=== PATIENT | female | born 1940 | race Caucasian/White ===

== ENCOUNTER 2019-04-30 16:30 | Emergency (ER) | payer MEDICARE ==
[~2019-04-30] VITALS: Ht 147 cm; Wt 56.0 kg
[~2019-04-30 16:30] MED LIST: BIMA2.5D4; CYCL5TAB PO; HYDR1TAB8 PO
[2019-04-30] MEDS ORDERED: ASPIRIN 81 MG CHEW (CHILDREN'S ASA) PO ONE (17:15)
--- NOTE | 2019-04-30 18:09 | ED Neck-Back Pain/Injury ---
General Chief Complaint: Head/Cervical Problems Stated Complaint: NECK PAIN Nursing Triage Note: PT C/O LEFT SHOULDER PAIN X 3 DAYS. PT REPORTS SHE GETS PAIN IN SHOULDER WHEN WEATHER GETS COLD. TODAY, PT NOTICED RIGHT-SIDED NECK, JAW, AND EAR PAIN. PT REPORTS DECREASED ROM IN NECK. DENIES CHEST PAIN. DENIES N/V/D. Nursing Sepsis Screen: No Definite Risk Source of Information: Patient Exam Limitations: No Limitations History of Present Illness Date Seen by Provider: Apr 30, 2019 Time Seen by Provider: 17:43 Initial Comments Right sided high neck pain laterally. She says she feels like her neck is in spasm and hurts when she turns it. This started Thursday, 3 days ago and has progressively gotten better. She did go to her doctor's office Thursday yesterday however Dr. Mullen was not available and she did not want to see the mid-level provider. Today it has continued to hurt her so she came in. Early on she was having pain on the left side of her neck and shoulder as well however that has not came back. She has no history of coronary disease. She does not have high blood pressure, diabetes, hyperlipidemia nor does she smoke. She has no history of stroke but about a year ago when she was in [place] she had a episode of transient global amnesia which was worked up thoroughly at the time and she says she had ultrasounds of the arteries of her neck CTs of her head and these were all reviewed again by Dr. Mullen but no organic reason for her event was found. At this time the patient's having some mild tenderness to palpation over the area and pain that does not really radiate anymore. She has not taken anything for the pain but she did use heating pads and capsaicin oil with a moderate degree of affect. She's had no slurred speech, facial droop, weakness, numbness, tingling, difficulty walking. No history of stroke or TIAs that she is aware of. She does not take any medications. She does have a history of a couple years ago having a fall with some back pain in her low back and left wrist fracture. She says through the excellent care of chiropractors and physical therapy however she is generally pain free for the past 2 years. Allergies and Home Medications Allergies Coded Allergies: No Known Drug Allergies (Unverified , 02/04/15) Patient Home Medication List Home Medication List Reviewed: Yes Review of Systems Constitutional: No chills, No fever EENTM: ear pain (mild pain and pressure left ear); No ear discharge, No vision loss, No hoarseness Respiratory: No cough, No short of breath Cardiovascular: see HPI; No chest pain, No edema Gastrointestinal: No abdominal pain, No constipation, No diarrhea Genitourinary: No discharge, No dysuria Musculoskeletal: see HPI; No back pain; muscle pain, muscle stiffness, neck pain All Other Systems Reviewed Negative Unless Noted: Yes Past Llhvjng-Atcedu-Sgxeus Hx Patient Social History Alcohol Use: Denies Use Recreational Drug Use: No Smoking Status: Never a Smoker Recent Foreign Travel: No Contact w/Someone Who Travel: No Recent Infectious Disease Expo: No Past Medical History Tonsillectomy High Cholesterol [employer] History: Menopausal Fractures Glaucoma Physical Exam Vital Signs Vital Signs - First Documented 04/30/19 17:07 Temp 36.9 Pulse 74 B/P (MAP) 135/84 (101) Pulse Ox 96 O2 Delivery Room Air Capillary Refill : Less Than 3 Seconds Height, Weight, BMI Height: 4'11.00" Weight: 122lbs. 0.0oz. 55.946650nd; 25.00 BMI Method:Stated General Appearance: No Apparent Distress, WD/WN HEENT: PERRL/EOMI, Pharynx Normal, TM Abnormal (L), TM Abnormal (R) (bilateral otitis effusion without erythema, injection or loss of landmarks on the tympanic membrane) Neck: Normal Inspection, Supple, Limited Range of Motion (lacks about 15-20 of rotation to the right secondary to pain); No Lymphadenopathy (L), No Lymphadenopathy (R); Tender Lateral (insertion of the superior head of the sternocleidomastoid and the muscle belly are tender to palpation. Bilateral trapezius mildly tender to palpation.); No Tender Midline Cardiovascular: Regular Rate, Rhythm, Normal Peripheral Pulses Respiratory: Lungs Clear, Normal Breath Sounds, No Accessory Muscle Use, No Respiratory Distress Peripheral Pulses: 2+ Radial Pulses (R), 2+ Radial Pulses (L) Back: Normal Inspection, No Vertebral Tenderness Neurologic/Psychiatric: Alert, Oriented x3, No Motor/Sensory Deficits, Normal Mood/Affect, ticketing agent II-XII Norm as Tested, Other (NIH 0) Skin: Normal Color, Warm/Dry Progress/Results/Core Measures Results/Orders Vital Signs/I&O 11/9/19 17:07 Temp 36.9 Pulse 74 B/P (MAP) 135/84 (101) Pulse Ox 96 O2 Delivery Room Air Blood Pressure Mean: 101 POS Progress Progress Note : Time: 18:10 Progress Note Given the patient's age is reasonable to pursue a workup of the vessels of her neck. We also discussed the possibility of a referred pain-related angina that would best be worked up by labs since the EKG was normal. After using a shared decision making process the patient concluded that she would prefer to do the workup as indicated outpatient with Dr. Mullen. She is in agreement with the diagnosis of torticollis and otitis media effusion and would like to try steroids, topical creams heat. She declined the use of muscle relaxants secondary to side effect of drowsiness. Initial ECG Impression Date: Apr 30, 2019 Initial ECG Impression Time: 17:04 Initial ECG Rate: 77 Initial ECG Rhythm: Normal Sinus Initial ECG Intervals: Normal Initial ECG Impression: Normal Comment No ST elevation or depression. Departure Impression Primary Impression: Torticollis, acquired Additional Impression: Bilateral otitis media with effusion Disposition: 01 HOME, SELF-CARE Condition: Stable Departure-Patient Inst. Decision time for Depature: 18:15 Referrals: LYDIA MULLEN MD (PCP/Family) Primary Care Physician Patient Instructions: Torticollis, Adult, Serous Otitis Media (DC) Add. Discharge Instructions: For your neck pain you should try heating pads, topical creams such as capsaicin oil, icy hot etc. You may also use Tylenol 1000 mg every 8 hours as needed. Follow-up with her chiropractor may be beneficial as well as your symptoms persist for more than a week. Please follow-up with your primary care doctor to discuss other potential workup that may be indicated. For your mucoid effusion of the ear you should start using a topical nasal steroids such as Flonase/fluticasone or Rhinocort 1 puff each nostril twice a day for the next 1-2 weeks until symptoms improve. All discharge instructions reviewed with patient and/or family. Voiced understanding. Copy Copies To 1: LYDIA MULLEN MD, TITUS J Apr 30, 2019 18:09 POS
[2019-04-30 18:56] VITALS: BP 135/84
== END 2019-04-30 18:56 | disposition home or self-care (01) ==
LOC: EDUNIT# 16:30 → ER 16:32
DX: M43.6 Torticollis (principal); H65.93 Unspecified nonsuppurative otitis media, bilateral; E78.00 Pure hypercholesterolemia, unspecified; Z90.89 Acquired absence of other organs

== ENCOUNTER → 2019-08-10 | Outpatient (CLI) | payer MEDICARE ==
[2019-08-10 22:15] LABS: ALANINE AMINOTRANSFERASE 19 U/L (0-55); ALBUMIN 4.3 GM/DL (3.2-4.5); ALKALINE PHOSPHATASE 87 U/L (40-136); BILIRUBIN,TOTAL 0.4 MG/DL (0.1-1.0); BUN/CREATININE RATIO 19; CALCIUM 9.5 MG/DL (8.5-10.1); CARBON DIOXIDE 21 MMOL/L (21-32); CHLORIDE 102 MMOL/L (98-107); CREATININE SERUM 0.78 MG/DL (0.60-1.30); GFR ESTIMATED > 60; GLUCOSE 112 MG/DL (70-105); POTASSIUM 4.1 MMOL/L (3.6-5.0); SODIUM 135 MMOL/L (135-145); TOTAL PROTEIN 7.3 GM/DL (6.4-8.2)
== END ==
LOC: LABNPT 21:56
PROVIDERS: ATTEND Family Medicine
DX: R50.9 Fever, unspecified (principal)
CPT/HCPCS: 80053

== ENCOUNTER → 2021-10-15 | Outpatient (CLI) | payer MEDICARE ==
--- NOTE | 2021-10-15 14:56 | Diagnostic Imaging Report ---
INDICATION: Postmenopausal screening COMPARISON: Baseline FINDINGS: AP Spine L1-L4: [BMD (g/cm2): 1.073] [T-Score: -1.1] [Z-Score: 1.1] [BMD Previous: NA] [BMD % Change: NA] LT Hip Neck: [BMD (g/cm2): 0.781] [T-Score: -1.9] [Z-Score: 0.6] LT Hip Total: [BMD (g/cm2):0.884] [T-Score:-1.0] [Z-Score: 1.4] [BMD Previous: NA] [BMD % Change: NA] RT Hip Neck: [BMD (g/cm2):0.759] [T-Score:-2.0] [Z-Score:0.5] RT Hip Total: [BMD (g/cm2):0.848] [T-score:-1.3] [Z-Score:1.1] [BMD Previous:NA] [BMD % Change:NA] *Indicates significant change from prior examination based on 95% confidence level. World Health Organization criteria for BMD interpretation classify patients as Normal (T-score at or above -1.0), Osteopenic (T-score between -1.0 and -2.5) or Osteoporotic (T-score at or below -2.5). LIMITATIONS AND MODIFICATION: None. FRACTURE RISK (FRAX SCORE): The ten year probability of (%): Major Osteoporotic Fracture: [22.9] Hip Fracture: [6.7] IMPRESSION: 1. Osteopenia (Low bone mass). 2. Baseline examination. 3. See below National Osteoporosis Foundation guidelines on when to potentially initiate pharmacologic therapy. Based on the National Osteoporosis Foundation Guidelines, pharmacologic treatment should be initiated in any of the following, unless clinical conditions suggest otherwise: * Any patient with prior fragility fracture of the hip or vertebrae. A spine fracture indicates 5X risk for subsequent spine fracture and 2X risk for subsequent hip fracture. * Osteoporosis (T-score <-2.5). * Postmenopausal women and men age 50 and older with low bone mass/osteopenia (T-score between -1.0 and -2.5) by DXA and 10-year major osteoporotic fracture greater than 20% or a 10-year probability of hip fracture greater than 3%. These fracture risks are supplied above in the FRAX score, if applicable. * Clinician judgement and/or patient preferences may indicate treatment for people with 10-year fracture probabilities above or below these levels. Dictated by: Dictated on workstation # [id number]
== END ==
LOC: RAD 11:00
PROVIDERS: ATTEND Internal Medicine
DX: Z13.820 Encounter for screening for osteoporosis (principal); M85.88 Other specified disorders of bone density and structure, other site; Z78.0 Asymptomatic menopausal state
CPT/HCPCS: 77080

== ENCOUNTER 2022-06-25 08:01 | Observation (INO) | payer MEDICARE ==
[~2022-06-25] VITALS: Ht 149.9 cm; Wt 55.0 kg
[2022-06-25] MEDS ORDERED: ANTACID SUSP 30 ML UDC (MYLANTA) PO PRN (09:45)
[2022-06-25] MEDS ORDERED: CALCIUM CARBONATE 500 MG (TUMS) TAB.CHEW PO PRN (09:45)
[2022-06-25] MEDS ORDERED: NS IV 500 ML 500 ML IV PRN (09:45)
[2022-06-25] MEDS ORDERED: ONDANSETRON 4 MG/2 ML (SDV) Z0FRAN IV PRN (09:45)
[2022-06-25] MEDS ORDERED: LACTULOSE SYRUP 10GM/15ML (ENULOSE) 30ML UDC PO PRN (09:45)
[2022-06-25] MEDS ORDERED: MELATONIN 3 MG TABLET PO PRN (09:45)
[2022-06-25] MEDS ORDERED: MILK OF MAGNESIA 400 MG/5 ML 30 ML UDC PO PRN (09:45)
[2022-06-25] MEDS ORDERED: ONDANSETRON 4 MG (ZOFRAN) ORAL DISSOLVE TAB PO PRN (09:45)
[2022-06-25] MEDS ORDERED: ACETAMINOPHEN 325 MG TABLET PO PRN (09:45)
[2022-06-25] MEDS ORDERED: BISACODYL 10 MG SUPP (DULCOLAX) PR PRN (09:45)
[2022-06-25] MEDS ORDERED: polyethylene glycoL POWDER 17 GM (MIRALAX) PACK PO PRN (09:45)
[2022-06-25 10:01] VITALS: BP 152/65
--- NOTE | 2022-06-25 10:26 | Speech Therapy Progress Note ---
Therapy Progress Note Speech language pathology received consultations for a cognitive evaluation and a clinical bedside swallowing assessment. Per chart review, the patient has "passed" her RN Dysphagia Screening. If additional swallowing concerns are not present, the RN is able to advance the patient's diet consistency as tolerated. Due to scheduling conflicts, the clinician will be unable to attempt the evaluation on this date. The assessments will be completed on the subsequent tr eatment date of 06/26/21, within 24 hours of the consultation. MORGAN REESE Jun 25, 2022 10:26
--- NOTE | 2022-06-25 11:15 | Diagnostic Imaging Report ---
PROCEDURE: US carotid duplex, bilateral. TECHNIQUE: Multiple real-time grayscale images were obtained over the carotid arteries in various projections, bilaterally. Additional spectral analysis and color Doppler duplex images were also obtained. INDICATION: Transient ischemic attack. There is mild calcified plaque noted in both carotid bulbs and proximal ICAs. The velocities are normal bilaterally. No velocity elevation or stenosis is identified. Both vertebral arteries demonstrate antegrade flow. IMPRESSION: Mild bilateral carotid plaque. There is no evidence of a hemodynamically significant stenosis. Parameters based on the consensus panel Maguire-Scale and Doppler ultrasound criteria published April 2003, Radiology, Volume 229. DOPPLER (peak systolic velocity M/S Right Left CCA .60 .57 ICA Proximal .55 .42 ICA Mid .57 .77 ICA Distal .60 .79 RATIO 1.0 1.4 ECA .90 .57 VERT .31 .31 Dictated by: Dictated on workstation # [id number]
--- NOTE | 2022-06-25 11:18 | Diagnostic Imaging Report ---
PROCEDURE: MR imaging of the brain without contrast. TECHNIQUE: Multiplanar, multisequence MR imaging of the brain was performed without contrast. INDICATION: Right-sided numbness and tingling. No prior studies are available for comparison. There is a moderate-sized area of encephalomalacia in the left cerebellar hemisphere consistent with prior infarct. There is a tiny focus of diffusion restriction in the lateral aspect of the left cerebellar hemisphere, suggestive of an acute/subacute infarct. No other areas of diffusion restriction are identified. There are periventricular and subcortical white matter foci consistent with chronic microvascular ischemia. There is no midline shift. The normal expected flow-voids within the carotid siphons are seen. No acute intra-axial or extra-axial hemorrhage is detected. Corpus callosum is unremarkable. The sella and parasellar structures are unremarkable. IMPRESSION: 1. Acute/subacute microinfarct left cerebellar hemisphere. No other areas of acute abnormality identified. 2. Changes of chronic microvascular ischemia. Dictated by: Dictated on workstation # [id number]
[2022-06-25 11:25] VITALS: BP 148/63
--- NOTE | 2022-06-25 11:45 | Physical Therapy Progress Note ---
Therapy Progress Note Order for PT evaluation received. Nurse reports that patient is ambulating on her own, toileting and dressing herself without issue, completely independent with mobility. Will discharge for now. AMY PYLE PT Jun 25, 2022 11:45
--- NOTE | 2022-06-25 11:54 | Occ Therapy Progress Note ---
Therapy Progress Note OT orders received and chart reviewed. RN reports pt is ambulating independently, toileting and dressing herself without assistance, and is independent at this time. OT will discharge pt from OT services at this time, please send new OT orders if pt has a decline requiring skilled OT intervention. DIRK VILLAR OT Jun 25, 2022 11:54
[2022-06-25] MEDS ORDERED: AMLO-251 PO ×2 (13:27→15:26)
[2022-06-25] MEDS ORDERED: ATOR80TA76 PO ×2 (13:27→15:26)
[2022-06-25] MEDS ORDERED: ASPI-1238 PO ×2 (13:27→15:26)
[2022-06-25] MEDS ORDERED: amLODIPine 10 MG (NORVASC) TAB PO NR (13:45)
[2022-06-25] MEDS ORDERED: ENOXAPARIN 40 MG/0.4 ML (LOVENOX) SYR SC SCH (15:00)
--- NOTE | 2022-06-25 18:45 | Short Stay Summary-Hospitalist ---
History of Present Illness HPI/Chief Complaint Sandra Bashir is an 81 year old female who presented to [facility] with stroke like symptoms. She was having right arm numbness this morning. She also had right facial numbness and weakness. She denies any arm or leg weakness. She denies dizziness or balance issues. She denies vision changes. Upon my exam, all her symptoms have resolved and she is feeling normal again. She is a bit fatigued. She reports a history of TIA. She does not take any medications. She reports an aversion to medications because her previous reportedly due to his medications. Source: patient Exam Limitations: no limitations Date Seen 06/25/22 Time Seen by a Provider: 12:30 Attending Physician Mikie Alejandro MD PCP Admitting Physician: Hoa Peck MD Attending Physician: Hoa Peck MD Referring Physician Date of Admission Jun 25, 2022 at 09:14 Home Medications & Allergies Home Medications Reviewed patient Home Medication Reconciliation performed by pharmacy medication reconciliations industrial controls technician and/or nursing. Patients Allergies have been reviewed. 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 0.0oz. 55.305956rz; 24.47 BMI Method:Stated General Appearance: No Apparent Distress, WD/WN HEENT: PERRL/EOMI, Pharynx Normal Neck: Normal Inspection, Supple Respiratory: Lungs Clear, No Respiratory Distress Cardiovascular: Regular Rate, Rhythm, No Murmur Gastrointestinal: Normal Bowel Sounds, Soft Extremity: Normal Inspection, No Pedal Edema Neurologic/Psychiatric: Alert, No Motor/Sensory Deficits, Normal Mood/Affect; No Aphasia, No Facial Droop Skin: Normal Color, Warm/Dry Results Results/Procedures Labs Patient resulted labs reviewed. Imaging: Reviewed Imaging Report Short Stay Diagnosis Discharge Diagnosis-Short Stay Admission Diagnosis Stroke like symptoms Final Discharge Diagnosis Left cerebellar stroke Conclusion Plan Left cerebellar stroke Hypertension At risk for medication noncompliance MRI with acute/subacute left cerebellar stroke Carotid ultrasound with mild bilateral plaque Echo with normal EF, grade I diastolic dysfunction EKG showed sinus rhythm with PACs BP elevated Started on Amlodipine for HTN Begin Aspirin for stroke prophylaxis Refused labs, unsure of lipid levels Started on Lipitor for lipid optimization Discussed medications and side effects with patient and , she agrees to take them for now Follow up with Dr. Alejandro in about a week Diagnosis/Problems Diagnosis/Problems (1) Cerebellar stroke Status: Acute (2) HTN (hypertension) Status: Acute Qualifiers: Qualified Codes: I10 - Essential (primary) hypertension (3) At risk for medication noncompliance Status: Acute Copy Copies To 1: MIKIE ALEJANDRO MD, JARIN M MD Jun 25, 2022 18:45
[2022-06-25] MEDS ORDERED: SENNOSIDES 8.6 MG (SENOKOT) TAB PO SCH (21:00)
[2022-06-25] MEDS ORDERED: DOCUSATE SODIUM 100 MG (COLACE) CAP PO SCH (21:00)
[2022-06-26] MEDS ORDERED: KCL 20 MEQ TAB (K-DUR) PO SCH (06:00)
[2022-06-26] MEDS ORDERED: MAGNESIUM 1 GM/100 ML IVPB 100 ML IV SCH (06:00)
[2022-06-26] MEDS ORDERED: POTASSIUM CL 10MEQ/50ML IVPB 50 ML IV SCH (06:00)
[2022-06-26] MEDS ORDERED: ASPIRIN E.C. 81 MG (ECOTRIN) TAB PO SCH (09:00)
== END 2022-06-25 14:14 | disposition home or self-care (01) ==
LOC: 4TH 09:14
PROVIDERS: ADMIT Internal Medicine; ATTEND Internal Medicine
DX: I63.9 Cerebral infarction, unspecified (principal); I10 Essential (primary) hypertension; I35.2 Nonrheumatic aortic (valve) stenosis with insufficiency
CPT/HCPCS: 70551; 93005; 93880; C8929; G0378; G0379; 93306

== ENCOUNTER 2022-07-22 16:28 | Observation (INO) | payer MEDICARE ==
[~2022-07-22] VITALS: Ht 150 cm; Wt 55.0 kg
[~2022-07-22 16:28] MED LIST changes: +AMLO-251 PO; +ASPI-1238 PO; +ATOR80TA76 PO
--- NOTE | 2022-07-22 17:05 | ED Cough/URI ---
General Chief Complaint: Cough/Cold/Flu Symptoms Stated Complaint: COUGH Nursing Triage Note: PT STATES COUGH FOR ABOUT A WEEK Source: patient Exam Limitations: no limitations History of Present Illness Date Seen by Provider: Jul 22, 2022 Time Seen by Provider: 16:39 Initial Comments 81-year-old female presents with cold symptoms since last Thursday. Reports her main complaint is her cough, states she is unable to sleep at night due to the coughing. States the symptoms started with a runny nose and tearing of her eyes as well as a sore throat. She states her sore throat is better after doing salt water gargles and using an analgesic spray for her throat. She also reports she was unable to eat due to weakness, states she was walking to the bathroom and felt like she was going to faint. She also reported a "warm pressure" in her chest. She states she is concerned for bronchitis or pneumonia. Denies fever/chills, headache, shortness of air, abdominal pain, nausea/vomiting, diarrhea. Past medical history includes TIA, she takes atorvastatin, losartan, and aspirin. States she also started taking zinc and using the throat spray since she started to feel unwell. Allergies and Home Medications Allergies Coded Allergies: No Known Drug Allergies (Unverified , 02/04/15) Patient Home Medication List Home Medication List Reviewed: Yes Ascorbic Acid/Zinc Oxide (Zinc-Vitamin C 50-90 mg Sfgl) 90 Mg-50 Mg Capsule, 1 EACH PO DAILY PRN for COLD SYMPTOMS, (Reported) Entered as Reported by: NIKOLAY WISE on 07/23/221052 Last Action: Reviewed Aspirin (Aspirin EC) 81 Mg Tablet.dr, 81 MG PO DAILY, (Reported) Entered as Reported by: NIKOLAY WISE on 07/23/221052 Last Action: Reviewed Atorvastatin Calcium (Atorvastatin Calcium) 80 Mg Tablet, 80 MG PO 1800, (Reported) Entered as Reported by: NIKOLAY WISE on 07/23/221052 Last Action: Reviewed Benzonatate (Tessalon Perles) 100 Mg Capsule, 200 MG PO Q6H Prescribed by: JOSE M BELLE on 07/24/22 110 Losartan Potassium (Losartan Potassium) 50 Mg Tablet, 50 MG PO 1800, (Reported) Entered as Reported by: NIKOLAY WISE on 07/23/221052 Last Action: Reviewed [Throat &Gland Suprt] , 2 SPRAY PO BID PRN for COLD SYMPTOMS, (Reported) Entered as Reported by: NIKOLAY WISE on 07/23/22 1053 Last Action: Reviewed Discontinued Medications Amlodipine Besylate (Amlodipine Besylate) 10 Mg Tablet, 10 MG PO ONCE Discontinued Reason: No Longer Taking Prescribed by: SALLIE GUTIÉRREZ on 06/25/221525 Last Action: Discontinued Aspirin (Aspirin EC) 81 Mg Tablet.dr, 81 MG PO DAILY Discontinued Reason: No Longer Taking Prescribed by: SALLIE GUTIÉRREZ on 06/25/221525 Last Action: Discontinued Atorvastatin Calcium (Atorvastatin Calcium) 80 Mg Tablet, 80 MG PO DAILY Discontinued Reason: No Longer Taking Prescribed by: SALLIE GUTIÉRREZ on 06/25/221525 Last Action: Discontinued Losartan Potassium (Cozaar) 50 Mg Tablet, 50 MG PO DAILY, (Reported) Discontinued Reason: No Longer Taking Entered as Reported by: JASPREET SHRESTHA on 07/22/222014 Last Action: Discontinued [Lumigan2.5 M2] 2.5 ML DROPS, ML, (Reported) Discontinued Reason: No Longer Taking Entered as Reported by: TONE GAO on 02/04/15 0738 Last Action: Discontinued Review of Systems Review of Systems Constitutional: see HPI Past Mbswxfs-Kvnhsz-Ujggsg Hx Patient Social History Tobacco Use?: No Substance use?: No Alcohol Use?: Yes Alcohol type: Wine Alcohol Frequency: Once in a while Immunizations Up To Date Tetanus Booster (TDap): Unknown Past Medical History Surgery/Hospitalization HX: VERTIGO, TONSILS, LT KNEE SCOPE Surgeries: Yes Tonsillectomy Respiratory: No Cardiac: No High Cholesterol Neurological: Yes (TRANSIENT GLOBAL AMNESIA, 12/22/2013) DATA ENTRY ASSISTANT History: Menopausal Gastrointestinal: No Musculoskeletal: Yes (LEFT WRIST FRACTURE 06/2014--NO SURGERY) Fractures Endocrine: No Glaucoma Cancer: No Psychosocial: No Integumentary: No Blood Disorders: No Family Medical History No Pertinent Family Hx Physical Exam Vital Signs - First Documented 07/22/22 16:58 Temp 36.9 Pulse 82 Resp 20 B/P (MAP) 125/62 (83) Pulse Ox 96 O2 Delivery Room Air Capillary Refill : Less Than 3 Seconds Height: 4'11.00" Weight: 122lbs. 0.0oz. [id number]; 24.00 BMI Method:Stated General Appearance: WD/WN, no apparent distress Neck: supple, normal inspection Respiratory: lungs clear, no respiratory distress, no accessory muscle use, decreased breath sounds Cardiovascular: regular rate, rhythm, no edema, no gallop, no JVD, no murmur Extremities: normal range of motion, normal inspection Neurologic/Psychiatric: alert, normal mood/affect, oriented x 3 Skin: normal color, warm/dry Progress/Results/Core Measures Suspected Sepsis SIRS Temperature: Pulse: 82 Respiratory Rate: 20 Laboratory Tests 07/22/22 17:30: White Blood Count 6.1 Blood Pressure 125 /62 Mean: 83 Laboratory Tests 07/22/22 17:30: Creatinine 0.72, Platelet Count 242, Total Bilirubin 0.4 Results/Orders Lab Results Laboratory Tests Test 07/22/22 16:49 07/22/22 17:30 Range/Units Influenza Type A (RT-PCR) Not Detected Not Detecte Influenza Type B (RT-PCR) Not Detected Not Detecte SARS-CoV-2 RNA (RT-PCR) Not Detected Not Detecte White Blood Count 6.1 4.3-11.0 10^3/uL Red Blood Count 4.21 3.80-5.11 10^6/uL Hemoglobin 12.7 11.5-16.0 g/dL Hematocrit 39 35-52 % Mean Corpuscular Volume 92 80-99 fL Mean Corpuscular Hemoglobin 30 25-34 pg Mean Corpuscular Hemoglobin Concent 33 32-36 g/dL Red Cell Distribution Width 13.2 10.0-14.5 % Platelet Count 242 130-400 10^3/uL Mean Platelet Volume 10.0 9.0-12.2 fL Immature Granulocyte % (Auto) 0 % Neutrophils (%) (Auto) 73 42-75 % Lymphocytes (%) (Auto) 17 12-44 % Monocytes (%) (Auto) 6 0-12 % Eosinophils (%) (Auto) 4 0-10 % Basophils (%) (Auto) 1 0-10 % Neutrophils # (Auto) 4.4 1.8-7.8 10^3/uL Lymphocytes # (Auto) 1.0 1.0-4.0 10^3/uL Monocytes # (Auto) 0.4 0.0-1.0 10^3/uL Eosinophils # (Auto) 0.2 0.0-0.3 10^3/uL Basophils # (Auto) 0.0 0.0-0.1 10^3/uL Immature Granulocyte # (Auto) 0.0 0.0-0.1 10^3/uL Sodium Level 138 135-145 MMOL/L Potassium Level 3.8 3.6-5.0 MMOL/L Chloride Level 102 98-107 MMOL/L Carbon Dioxide Level 24 21-32 MMOL/L Anion Gap 12 5-14 MMOL/L Blood Urea Nitrogen 19 H 7-18 MG/DL Creatinine 0.72 0.60-1.30 MG/DL Estimat Glomerular Filtration Rate 83 BUN/Creatinine Ratio 26 Glucose Level 113 H 70-105 MG/DL Calcium Level 9.7 8.5-10.1 MG/DL Corrected Calcium 9.6 8.5-10.1 MG/DL Magnesium Level 2.2 1.6-2.4 MG/DL Total Bilirubin 0.4 0.1-1.0 MG/DL Aspartate Amino Transf (AST/SGOT) 19 5-34 U/L Alanine Aminotransferase (ALT/SGPT) 20 0-55 U/L Alkaline Phosphatase 113 40-136 U/L Troponin I 0.089 H <0.028 NG/ML Total Protein 7.7 6.4-8.2 GM/DL Albumin 4.1 3.2-4.5 GM/DL My Orders Orders - CHUCHO ARIAS APRN Covid 19 Inhouse Test (07/22/22 16:39) Influenza A And B By Pcr (07/22/22 16:39) Chest 1 View, Ap/Pa Only (07/22/22 17:00) Cbc With Automated Diff (07/22/22 17:05) Magnesium (07/22/22 17:05) Ekg Tracing (07/22/22 17:05) Comprehensive Metabolic Panel (07/22/22 17:05) Monitor-Rhythm Ecg Trace Only (07/22/22 17:05) Ed Iv/Invasive Line Start (07/22/22 17:05) Troponin I [place] (07/22/22 17:05) Ns Iv 1000 Ml (Sodium Chloride 0.9%) (07/22/22 17:15) Benzonatate Capsule (Tessalon Perles) (07/22/22 17:15) Ed Admission (Communication) (07/22/22 19:11) Medications Given in ED Vital Signs/I&O 07/22/22 07/22/22 16:58 17:00 Temp 36.9 Pulse 82 Resp 20 B/P (MAP) 125/62 (83) Pulse Ox 96 O2 Delivery Room Air Room Air Capillary Refill : Less Than 3 Seconds Blood Pressure Mean: 83 Progress Note #1: Time: 17:15 Progress Note Patient seen and evaluated, resting in bed, no acute distress. Based on exam and symptoms differential diagnosis includes but is not limited to, upper respiratory virus, pneumonia, bronchitis. Work-up initiated including CBC, CMP, troponin, chest x-ray, flu/COVID swabs, EKG. IV fluids ordered. Progress Note #2: Time: 17:30 Progress Note Chest x-ray reviewed, no concern for pneumonia, no cardiopulmonary process identified. Progress Note #3: Time: 18:50 Progress Note Labs reviewed. CBC grossly normal. CMP shows slightly elevated BUN at 19, and slightly elevated glucose at 113. Troponin elevated at 0.089, will consult with Dr. Das, cardiology, and Dr. Belle, hospitalist, for admission. Covid/flu negative. ECG Initial ECG Impression Date: Jul 22, 2022 Initial ECG Impression Time: 17:33 Initial ECG Rate: 76 Initial ECG Rhythm: Normal Sinus Initial ECG Intervals: Normal Initial ECG Impression: Normal Initial ECG Comparisson: Unchanged Diagnostic Imaging Diagonstic Imaging: Xray Plain Films/CT/US/NM/MRI: chest Comments [facility] [place], [place] NAME: SONNY SAINI [facility] REC#: [id number] PT STATUS: REG ER : 1940 PHYSICIAN: CHUCHO ARIAS APRN ADMIT DATE: 07/22/22/ER Draft Date of Exam:07/22/22 CHEST 1 VIEW, AP/PA ONLY INDICATION: Cough. FINDINGS: The heart size, mediastinal configuration, and pulmonary vascularity are within normal limits. There is no pleural effusion, pneumothorax, or pneumonia. The osseous structures are unremarkable. IMPRESSION: No acute cardiopulmonary abnormality. Dictated on workstation # [id number] Dict: 07/22/22 1719 Trans: 07/22/22 1721 [id number] Interpreted by: MASSIEL RAE MD Electronically signed by: Departure Communication (Admissions) Time/Spoke to Admitting Phy: 19:[address] Belle, hospitalist, regarding admission, she will place admission orders. Time/Spoke to Consulting Phy: 18:[address] Das, cardiology. He recommends admission with serial troponins, starting 1 mg/kg Lovenox, and continuing home medications. Impression Primary Impression: Elevated troponin Disposition: ADMITTED INPATIENT Condition: Stable Admissions Decision to Admit Reason: Admit from ER (General) Decision to Admit/Date: Jul 22, 2022 Time/Decision to Admit Time: 18:50 Departure-Patient Inst. Referrals: MIKIE ALEJANDRO MD (PCP/Family) Primary Care Physician Scripts Benzonatate (TESSALON PERLES) 100 Mg Capsule 200 MG PO Q6H, #30 CAP Prov: JOSE M BELLE DO 07/24/22 CHUCHO ARIAS APRN Jul 22, 2022 17:05
[2022-07-22] MEDS ORDERED: NS IV 1000 ML 1,000 ML IV SCH (17:15)
[2022-07-22] MEDS ORDERED: BENZONATATE 100 MG (TESSALON) CAPSULE PO ONE (17:15)
--- NOTE | 2022-07-22 17:22 | Diagnostic Imaging Report ---
INDICATION: Cough. FINDINGS: The heart size, mediastinal configuration, and pulmonary vascularity are within normal limits. There is no pleural effusion, pneumothorax, or pneumonia. The osseous structures are unremarkable. IMPRESSION: No acute cardiopulmonary abnormality. Dictated by: Dictated on workstation # [id number]
[2022-07-22 17:45] LABS: BASOPHILS % (AUTO) 1 % (0-10); EOSINOPHILS # (AUTO) 0.2 10^3/uL (0.0-0.3); EOSINOPHILS % (AUTO) 4 % (0-10); HEMATOCRIT 39 % (35-52); HEMOGLOBIN 12.7 g/dL (11.5-16.0); LYMPHOCYTES % (AUTO) 17 % (12-44); MEAN CORPUSCULAR HEMOGLOBIN 30 pg (25-34); MEAN CORPUSCULAR HGB CONC 33 g/dL (32-36); MEAN CORPUSCULAR VOLUME 92 fL (80-99); MONOCYTES # (AUTO) 0.4 10^3/uL (0.0-1.0); MONOCYTES % (AUTO) 6 % (0-12); NEUTROPHILS # (AUTO) 4.4 10^3/uL (1.8-7.8); NEUTROPHILS % (AUTO) 73 % (42-75); PLATELET COUNT 242 10^3/uL (130-400); WHITE BLOOD COUNT 6.1 10^3/uL (4.3-11.0)
[2022-07-22 18:07] LABS: ALBUMIN 4.1 GM/DL (3.2-4.5); BILIRUBIN,TOTAL 0.4 MG/DL (0.1-1.0); CALCIUM 9.7 MG/DL (8.5-10.1); CREATININE SERUM 0.72 MG/DL (0.60-1.30); MAGNESIUM 2.2 MG/DL (1.6-2.4); POTASSIUM 3.8 MMOL/L (3.6-5.0); TOTAL PROTEIN 7.7 GM/DL (6.4-8.2)
[2022-07-22 19:59] VITALS: BP 154/81
[2022-07-22] MEDS ORDERED: morphine INJ 4 MG/ML 1 ML (VIAL/SYRINGE) IV PRN (20:00)
[2022-07-22] MEDS ORDERED: MILK OF MAGNESIA 400 MG/5 ML 30 ML UDC PO PRN (20:00)
[2022-07-22] MEDS ORDERED: diphenhydrAMINE 50 MG/ML INJ (BENADRYL) IVP PRN (20:00)
[2022-07-22] MEDS ORDERED: ANTACID SUSP 30 ML UDC (MYLANTA) PO PRN (20:00)
[2022-07-22] MEDS ORDERED: ONDANSETRON 4 MG/2 ML (SDV) Z0FRAN IV PRN (20:00)
[2022-07-22] MEDS ORDERED: ONDANSETRON 4 MG (ZOFRAN) ORAL DISSOLVE TAB PO PRN (20:00)
[2022-07-22] MEDS ORDERED: CALCIUM CARBONATE 500 MG (TUMS) TAB.CHEW PO PRN (20:00)
[2022-07-22] MEDS ORDERED: PATIENT MAY USE OWN MEDS, ALL PO SCH (20:00)
[2022-07-22] MEDS ORDERED: LACTULOSE SYRUP 10GM/15ML (ENULOSE) 30ML UDC PO PRN (20:00)
[2022-07-22] MEDS ORDERED: NITROGLYCERIN 0.4 MG SL TABS BTL 25'S SL PRN (20:00)
[2022-07-22] MEDS ORDERED: ACETAMINOPHEN 325 MG TABLET PO PRN (20:00)
[2022-07-22] MEDS ORDERED: ALPRAZolam 1 MG (XANAX) TAB PO PRN (20:00)
[2022-07-22] MEDS ORDERED: BISACODYL 10 MG SUPP (DULCOLAX) PR PRN (20:00)
[2022-07-22] MEDS ORDERED: diphenhydrAMINE 25 MG TAB (BENADRYL) PO PRN (20:00)
[2022-07-22] MEDS ORDERED: MELATONIN 3 MG TABLET PO PRN (20:00)
[2022-07-22] MEDS ORDERED: polyethylene glycoL POWDER 17 GM (MIRALAX) PACK PO PRN (20:00)
[2022-07-22] MEDS ORDERED: LOSA50TA2 PO (20:15)
[2022-07-22 20:23] VITALS: BP 125/62
[2022-07-22] MEDS ORDERED: RT-ALBUTEROL SULF 2.5 MG/3 ML PRE-MIX VIAL INH PRN (20:30)
[2022-07-22] MEDS: SENNOSIDES 8.6 MG (SENOKOT) TAB PO SCH (23:11)
[2022-07-22] MEDS: DOCUSATE SODIUM 100 MG (COLACE) CAP PO SCH (23:11)
[2022-07-22 23:49] VITALS: BP 105/62
[2022-07-23] VITALS (7 sets, daily range): BP systolic 104–120; BP diastolic 54–69
[2022-07-23 05:48] LABS: BASOPHILS % (AUTO) 0 % (0-10); EOSINOPHILS # (AUTO) 0.2 10^3/uL (0.0-0.3); EOSINOPHILS % (AUTO) 4 % (0-10); HEMATOCRIT 36 % (35-52); HEMOGLOBIN 11.9 g/dL (11.5-16.0); LYMPHOCYTES # (AUTO) 0.9 10^3/uL (1.0-4.0); LYMPHOCYTES % (AUTO) 16 % (12-44); MEAN CORPUSCULAR HEMOGLOBIN 30 pg (25-34); MEAN CORPUSCULAR HGB CONC 34 g/dL (32-36); MEAN CORPUSCULAR VOLUME 90 fL (80-99); MEAN PLATELET VOLUME 10.2 fL (9.0-12.2); MONOCYTES # (AUTO) 0.4 10^3/uL (0.0-1.0); MONOCYTES % (AUTO) 6 % (0-12); NEUTROPHILS # (AUTO) 4.1 10^3/uL (1.8-7.8); NEUTROPHILS % (AUTO) 72 % (42-75); PLATELET COUNT 224 10^3/uL (130-400); WHITE BLOOD COUNT 5.6 10^3/uL (4.3-11.0)
[2022-07-23 05:57] LABS: POTASSIUM 3.7 MMOL/L (3.6-5.0)
[2022-07-23 05:58] LABS: ALBUMIN 3.6 GM/DL (3.2-4.5)
[2022-07-23 05:59] LABS: CALCIUM 8.8 MG/DL (8.5-10.1)
[2022-07-23 06:00] LABS: TOTAL PROTEIN 6.7 GM/DL (6.4-8.2)
[2022-07-23 06:02] LABS: BILIRUBIN,TOTAL 0.4 MG/DL (0.1-1.0)
[2022-07-23 06:04] LABS: CREATININE SERUM 0.62 MG/DL (0.60-1.30)
[2022-07-23] MEDS ORDERED: ALPRAZolam 0.5 MG (XANAX) TAB PO PRN (07:30)
[2022-07-23] MEDS: DOCUSATE SODIUM 100 MG (COLACE) CAP PO SCH ×2 (09:00→21:52)
[2022-07-23] MEDS: SENNOSIDES 8.6 MG (SENOKOT) TAB PO SCH ×2 (09:00→21:52)
[2022-07-23] MEDS: ASPIRIN E.C. 81 MG (ECOTRIN) TAB PO SCH (09:00)
[2022-07-23] MEDS ORDERED: ATOR80TA76 PO (10:53)
[2022-07-23] MEDS ORDERED: THROAT PO (10:53)
[2022-07-23] MEDS ORDERED: ASPI-1238 PO (10:53)
[2022-07-23] MEDS ORDERED: [UNRECOGNIZED DRUG - OTHER] PO (10:53)
[2022-07-23] MEDS ORDERED: ASCO1CAP PO (10:53)
[2022-07-23] MEDS ORDERED: LOSA50TA63 PO (10:53)
--- NOTE | 2022-07-23 10:53 | Consultation-Cardiology ---
HPI-Cardiology Cardiology Consultation Date of Consultation 07/23/22 Date of Admission Time Seen by Provider: 08:15 Indication: Elevated troponin HPI Patient is any 81 y/o female with history of recent CVA, recently diagnosed HTN. Presented to the ER with complaints of sore throat, cough and congestion for the past week. States she had episode of chest pressure and dizziness/near syncope upon walking to the bathroom that prompted her to come to the ER. Currently she denies any chest pain, dyspnea, dizziness or lightheadeness. Patient states she has an aversion to taking prescription medications as she believes medications were the cause of her previous husbands , but states she has been taking her blood pressure medications since they were prescribed. Continues to complain of some generalized weakness. Home Medications & Allergies Allergies: Coded Allergies: No Known Drug Allergies (Unverified , 02/04/15) Home Medication List Reviewed: Yes BDW-Cjcghp-Rtgyis Hx Patient Social History Marital Status: Smoking Status: Never a Smoker Have you traveled recently?: Yes Alcohol Use?: No Immunizations Up To Date Tetanus Booster (TDap): Unknown Date of Influenza Vaccine: Jun 23, 2022 Past Medical History CVA,HTN Family Medical History Significant Family History: No Pertinent Family Hx Review of Systems-General Review of Systems Constitutional: see HPI, dizziness, malaise, weakness EENTM: see HPI; No blurred vision, No double vision Respiratory: see HPI, cough; No dyspnea on exertion, No short of breath Cardiovascular: see HPI, chest pain; No edema, No Hx of Intervention, No palpitations, No syncope, No vascular heart diseas Gastrointestinal: No abdominal pain, No constipation, No diarrhea Reviewed Test Results Reviewed Test Results Lab Laboratory Tests 07/22/22 16:49: Influenza Type A (RT-PCR) Not Detected, Influenza Type B (RT-PCR) Not Detected, SARS-CoV-2 RNA (RT-PCR) Not Detected 07/22/22 17:30: White Blood Count 6.1, Red Blood Count 4.21, Hemoglobin 12.7, Hematocrit 39, Mean Corpuscular Volume 92, Mean Corpuscular Hemoglobin 30, Mean Corpuscular Hemoglobin Concent 33, Red Cell Distribution Width 13.2, Platelet Count 242, Mean Platelet Volume 10.0, Immature Granulocyte % (Auto) 0, Neutrophils (%) (Auto) 73, Lymphocytes (%) (Auto) 17, Monocytes (%) (Auto) 6, Eosinophils (%) (Auto) 4, Basophils (%) (Auto) 1, Neutrophils # (Auto) 4.4, Lymphocytes # (Auto) 1.0, Monocytes # (Auto) 0.4, Eosinophils # (Auto) 0.2, Basophils # (Auto) 0.0, Immature Granulocyte # (Auto) 0.0, Sodium Level 138, Potassium Level 3.8, Chloride Level 102, Carbon Dioxide Level 24, Anion Gap 12, Blood Urea Nitrogen 19H, Creatinine 0.72, Estimat Glomerular Filtration Rate 83, BUN/Creatinine Ratio 26, Glucose Level 113H, Calcium Level 9.7, Corrected Calcium 9.6, Magnesium Level 2.2, Total Bilirubin 0.4, Aspartate Amino Transf (AST/SGOT) 19, Alanine Aminotransferase (ALT/SGPT) 20, Alkaline Phosphatase 113, Troponin I 0.089H, Total Protein 7.7, Albumin 4.1 07/23/22 05:18: White Blood Count 5.6, Red Blood Count 3.94, Hemoglobin 11.9, Hematocrit 36, Mean Corpuscular Volume 90, Mean Corpuscular Hemoglobin 30, Mean Corpuscular Hemoglobin Concent 34, Red Cell Distribution Width 13.0, Platelet Count 224, Mean Platelet Volume 10.2, Immature Granulocyte % (Auto) 0, Neutrophils (%) (Auto) 72, Lymphocytes (%) (Auto) 16, Monocytes (%) (Auto) 6, Eosinophils (%) (Auto) 4, Basophils (%) (Auto) 0, Neutrophils # (Auto) 4.1, Lymphocytes # (Auto) 0.9L, Monocytes # (Auto) 0.4, Eosinophils # (Auto) 0.2, Basophils # (Auto) 0.0, Immature Granulocyte # (Auto) 0.0, Sodium Level 139, Potassium Level 3.7, Chloride Level 106, Carbon Dioxide Level 23, Anion Gap 10, Blood Urea Nitrogen 9, Creatinine 0.62, Estimat Glomerular Filtration Rate 88, BUN/Creatinine Ratio 15, Glucose Level 88, Calcium Level 8.8, Corrected Calcium 9.1, Total Bilirubin 0.4, Aspartate Amino Transf (AST/SGOT) 17, Alanine Aminotransferase (ALT/SGPT) 18, Alkaline Phosphatase 92, Troponin I 0.049H, Total Protein 6.7, Albumin 3.6, Triglycerides Level 53, Cholesterol Level 104, LDL Cholesterol Direct 51, VLDL Cholesterol 11, HDL Cholesterol 36L ECG Impression ECG Initial ECG Rhythm: Normal Sinus Physical Exam Physical Exam Vital Signs Vital Signs - First Documented 07/22/22 07/22/22 16:58 20:23 Temp 36.9 Pulse 82 Resp 20 B/P (MAP) 125/62 (83) Pulse Ox 96 O2 Delivery Room Air FiO2 21 Capillary Refill : Less Than 3 Seconds Height, Weight, BMI Height: 4'11.00" Weight: 122lbs. 0.0oz. 55.665786lo; 24.44 BMI Method:Stated General Appearance: No Apparent Distress, WD/WN, Anxious HEENT: PERRL/EOMI, Normal ENT Inspection Neck: Non Tender, Supple; No Carotid Bruit Respiratory: Chest Non Tender, Lungs Clear, Normal Breath Sounds, No Accessory Muscle Use, No Respiratory Distress Cardiovascular: Regular Rate, Rhythm, No Edema, No Murmur, Normal Peripheral Pulses Gastrointestinal: Non Tender, Soft Back: No CVA Tenderness Extremity: No Calf Tenderness Neurologic/Psychiatric: Alert, Oriented x3 Skin: Normal Color, Warm/Dry A/P-Cardiology Admission Diagnosis Chest pain Elevated troponin HTN Hx CVA URI Assessment/Plan Chest pain, nonspecific etiology, resolved. Reports brief episode of chest pain prior to admission when she was up walking to bathroom with associated dizziness. Denies any further episode. EKG showing SR with no acute ST changes. Lexiscan stress test was done on July 23, 2022 with no ischemia or infarction noted on SPECT images. Normal ejection fraction. Patient was reassured. Conservative management is recommended Upper respiratory tract infection, cough with runny nose, sore throat, managed by primary care team. 2D Echo done 06/25/22 showed mild concentric hypertrophy, EF 55-60%. Grade 1 diastolic dysfunction. Mild aortic valve sclerosis with mild AR. Minimal elevation in troponin, possible type II MN, however, underlying CAD cannot be excluded. Will continue to trend. Planning for LST for further evaluation. HTN, restart home blood pressure medications and continue to monitor. Recent CVA, was hospitalized in June 2022 for CVA. 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 Maintained on ASA. 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 Bashir. This is Arti Amezcua PA-C, as a scribe for Dr. Das. Patient was seen and evaluated, I interviewed and examined the patient, discussed the management plan with Arti, I agree with the current scribed note Patient had atypical chest pain, work-up has been negative. Blood pressure will be monitored, restart home medication Her recent TIA/CVA episode with abnormal MRI report. Could be secondary to embolization, will consider cardiac monitoring long-term. Continue on aspirin, monitor blood pressure. Okay for discharge from cardiology standpoint ARTI JONES Jul 23, 2022 10:53 JONE DAS MD Jul 23, 2022 18:13
--- NOTE | 2022-07-23 11:24 | Short Stay Summary ---
KATHERINE CORADO 07/23/22 1124: History of Present Illness History of Present Illness Reason for visit/HPI Mrs. Bashir is a pleasant 81 y/o female with a past medical history of TIA on Jun 25, HTN, HLD who presented to the ER yesterday with complaint of lightheadedness and fatigue. She also reported a "warm" nonradiating sensation in her chest before arrival to the ER, this sensation was new and had not happened before. She denied any sweating or shortness of breath. She had been feeling sick with a cough, runny nose, and sore throat since last Saturday 07/15. In the ER she was found to have an elevated troponin with an EKG showing sinus rhythm. A chest xray showed no acute abnormalities. She is medication averse due to feelings that her first was overmedicated, but reports she has taken her medication at home as prescribed. She reports feeling much better today. She denies any chest pain or shortness of breath and is able to ambulate and use the restroom without complication. Her fatigue is improved and only complains of some mild neck pain due to an uncomfortable pillow overnight. Date of Admission Jul 22, 2022 at 19:12 Date of Discharge Attending Physician Mario Cheney MD Admitting Physician Admitting Physician: Brina Belle DO Attending Physician: Brina Belle DO Consult Allergies and Home Medications Allergies Coded Allergies: No Known Drug Allergies (Unverified , 02/04/15) Patient Home Medication List Home Medication List Reviewed: Yes Ascorbic Acid/Zinc Oxide (Zinc-Vitamin C 50-90 mg Sfgl) 90 Mg-50 Mg Capsule, 1 EACH PO DAILY PRN for COLD SYMPTOMS, (Reported) Entered as Reported by: NIKOLAY WISE on 07/23/221052 Last Action: Reviewed Aspirin (Aspirin EC) 81 Mg Tablet.dr, 81 MG PO DAILY, (Reported) Entered as Reported by: NIKOLAY WISE on 07/23/221052 Last Action: Reviewed Atorvastatin Calcium (Atorvastatin Calcium) 80 Mg Tablet, 80 MG PO 1800, (Reported) Entered as Reported by: NIKOLAY WISE on 07/23/221052 Last Action: Reviewed Losartan Potassium (Losartan Potassium) 50 Mg Tablet, 50 MG PO 1800, (Reported) Entered as Reported by: NIKOLAY WISE on 07/23/221052 Last Action: Reviewed [Throat &Gland Suprt] , 2 SPRAY PO BID PRN for COLD SYMPTOMS, (Reported) Entered as Reported by: NIKOLAY WISE on 07/23/221052 Last Action: Reviewed Discontinued Medications Amlodipine Besylate (Amlodipine Besylate) 10 Mg Tablet, 10 MG PO ONCE Discontinued Reason: No Longer Taking Prescribed by: SALLIE GUTIÉRREZ on 06/25/221525 Last Action: Discontinued Aspirin (Aspirin EC) 81 Mg Tablet.dr, 81 MG PO DAILY Discontinued Reason: No Longer Taking Prescribed by: SALLIE GUTIÉRREZ on 06/25/221525 Last Action: Discontinued Atorvastatin Calcium (Atorvastatin Calcium) 80 Mg Tablet, 80 MG PO DAILY Discontinued Reason: No Longer Taking Prescribed by: SALLIE GUTIÉRREZ on 06/25/221525 Last Action: Discontinued Losartan Potassium (Cozaar) 50 Mg Tablet, 50 MG PO DAILY, (Reported) Discontinued Reason: No Longer Taking Entered as Reported by: JASPREET SHRESTHA on 07/22/222014 Last Action: Discontinued [Lumigan2.5 M2] 2.5 ML DROPS, ML, (Reported) Discontinued Reason: No Longer Taking Entered as Reported by: TONE GAO on 02/04/15 0738 Last Action: Discontinued Past Glogvdg-Rfrblb-Yxorxe Hx Patient Social History Marrital Status: Employed/Student: retired Smoking Status: Never a Smoker Have you traveled recently?: Yes Alcohol Use?: No Pt feels they are or have been: No Immunizations Up To Date Tetanus Booster (TDap): Unknown Date of Influenza Vaccine: Jun 23, 2022 Surgeries Yes Orthopedic (L knee scope in 2020), Tonsillectomy Respiratory No Cardiovascular Yes High Cholesterol, Hypertension Neurological Yes (TRANSIENT GLOBAL AMNESIA, 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/2013) TIA (06/25) 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: Menopausal Gastrointestinal No Musculoskeletal Yes (LEFT WRIST FRACTURE 06/2014--NO SURGERY) Fractures Endocrine History of Endocrine Disorders: No HEENT HEENT Disorders: Glaucoma Cancer No Psychosocial History of Psychiatric Problem: No Integumentary History of Skin or Integumenta: No Blood Transfusions History of Blood Disorders: No Family Medical History Significant Family History: Cancer (mother of stomach cancer), Lung Disease (father of PNA with a hx of lung issues) Review of Systems Constitutional: No chills, No diaphoresis, No fever EENTM: throat pain (improved from yesterday); No vision loss Respiratory: No cough, No short of breath, No wheezing Cardiovascular: No chest pain, No palpitations Gastrointestinal: No abdominal pain Genitourinary: No dysuria, No frequency Physical Exam Vital Signs Vital Signs - First Documented 07/22/22 07/22/22 16:58 20:23 Temp 36.9 Pulse 82 Resp 20 B/P (MAP) 125/62 (83) Pulse Ox 96 O2 Delivery Room Air FiO2 21 Capillary Refill : Less Than 3 Seconds Height, Weight, BMI Height: 4'11.00" Weight: 122lbs. 0.0oz. 55.344201jh; 24.44 BMI Method:Stated General Appearance: No Apparent Distress, WD/WN HEENT: PERRL/EOMI Respiratory: Chest Non Tender, Lungs Clear, Normal Breath Sounds, No Accessory Muscle Use Cardiovascular: Regular Rate, Rhythm, No Murmur Gastrointestinal: Normal Bowel Sounds, Non Tender, Soft Extremity: No Pedal Edema Neurologic/Psychiatric: Alert, Oriented x3, Normal Mood/Affect Short Stay Diagnosis Discharge Diagnosis-Short Stay Admission Diagnosis: Fatigue and Weakness Final Discharge Diagnosis: Elevated troponin Conclusion Labs Laboratory Tests 07/22/22 16:49: Influenza Type A (RT-PCR) Not Detected, Influenza Type B (RT-PCR) Not Detected, SARS-CoV-2 RNA (RT-PCR) Not Detected 07/22/22 17:30: White Blood Count 6.1, Red Blood Count 4.21, Hemoglobin 12.7, Hematocrit 39, Mean Corpuscular Volume 92, Mean Corpuscular Hemoglobin 30, Mean Corpuscular Hemoglobin Concent 33, Red Cell Distribution Width 13.2, Platelet Count 242, Mean Platelet Volume 10.0, Immature Granulocyte % (Auto) 0, Neutrophils (%) (Auto) 73, Lymphocytes (%) (Auto) 17, Monocytes (%) (Auto) 6, Eosinophils (%) (A uto) 4, Basophils (%) (Auto) 1, Neutrophils # (Auto) 4.4, Lymphocytes # (Auto) 1.0, Monocytes # (Auto) 0.4, Eosinophils # (Auto) 0.2, Basophils # (Auto) 0.0, Immature Granulocyte # (Auto) 0.0, Sodium Level 138, Potassium Level 3.8, Chloride Level 102, Carbon Dioxide Level 24, Anion Gap 12, Blood Urea Nitrogen 19H, Creatinine 0.72, Estimat Glomerular Filtration Rate 83, BUN/Creatinine Ratio 26, Glucose Level 113H, Calcium Level 9.7, Corrected Calcium 9.6, Magnesium Level 2.2, Total Bilirubin 0.4, Aspartate Amino Transf (AST/SGOT) 19, Alanine Aminotransferase (ALT/SGPT) 20, Alkaline Phosphatase 113, Troponin I 0.089H, Total Protein 7.7, Albumin 4.1 07/23/22 05:18: White Blood Count 5.6, Red Blood Count 3.94, Hemoglobin 11.9, Hematocrit 36, Mean Corpuscular Volume 90, Mean Corpuscular Hemoglobin 30, Mean Corpuscular Hemoglobin Concent 34, Red Cell Distribution Width 13.0, Platelet Count 224, Mean Platelet Volume 10.2, Immature Granulocyte % (Auto) 0, Neutrophils (%) (Auto) 72, Lymphocytes (%) (Auto) 16, Monocytes (%) (Auto) 6, Eosinophils (%) (Auto) 4, Basophils (%) (Auto) 0, Neutrophils # (Auto) 4.1, Lymphocytes # (Auto) 0.9L, Monocytes # (Auto) 0.4, Eosinophils # (Auto) 0.2, Basophils # (Auto) 0.0, Immature Granulocyte # (Auto) 0.0, Sodium Level 139, Potassium Level 3.7, Chloride Level 106, Carbon Dioxide Level 23, Anion Gap 10, Blood Urea Nitrogen 9, Creatinine 0.62, Estimat Glomerular Filtration Rate 88, BUN/Creatinine Ratio 15, Glucose Level 88, Calcium Level 8.8, Corrected Calcium 9.1, Total Bilirubin 0.4, Aspartate Amino Transf (AST/SGOT) 17, Alanine Aminotransferase (ALT/SGPT) 18, Alkaline Phosphatase 92, Troponin I 0.049H, Total Protein 6.7, Albumin 3.6, Triglycerides Level 53, Cholesterol Level 104, LDL Cholesterol Direct 51, VLDL Cholesterol 11, HDL Cholesterol 36L Conclusion/Plan Chest pain with elevated troponin .089 in ER and .049 today 07/23. No abnormality on chest x ray. Cardiology has been consulted and recommend stress test to rule out CAD. 2D Echo done 06/25/22 showed mild concentric hypertrophy, EF 55-60%. Grade 1 diastolic dysfunction. Mild aortic valve sclerosis with mild AR. Continue to trend troponins and appreciate cardiology recs. This chest pain and elevated troponin could be due to type II PA, but no tachycardia or arryth david found yet. Could also be due to myocarditis or pericarditis, negative covid and flu, no elevated imflammatory markers making this unlikely. Cough, Runny nose, Sore throat Negative flu and covid tests in ER. Continue supportive care for likely viral URI. Benzonatate has helped cough and sore throat. Elevated BUN 19 yesterday. Down to 8 today. Continue to monitor HTN continue home meds, BP was 110/65 this AM BRINA BELLE DO 07/24/22 0513: History of Present Illness History of Present Illness Reason for visit/HPI CC: Near syncope with chest pain and elevated troponin Date of Admission 07/23/2022 Date of Discharge na Time Seen by Provider: 10:00 Allergies and Home Medications Allergies Coded Allergies: No Known Drug Allergies (Unverified , 02/04/15) Patient Home Medication List Home Medication List Reviewed: Yes Ascorbic Acid/Zinc Oxide (Zinc-Vitamin C 50-90 mg Sfgl) 90 Mg-50 Mg Capsule, 1 EACH PO DAILY PRN for COLD SYMPTOMS, (Reported) Entered as Reported by: NIKOLAY WISE on 07/23/221052 Last Action: Reviewed Aspirin (Aspirin EC) 81 Mg Tablet., 81 MG PO DAILY, (Reported) Entered as Reported by: NIKOLAY WISE on 07/23/221052 Last Action: Reviewed Atorvastatin Calcium (Atorvastatin Calcium) 80 Mg Tablet, 80 MG PO 1800, (Reported) Entered as Reported by: NIKOLAY WISE on 07/23/221052 Last Action: Reviewed Losartan Potassium (Losartan Potassium) 50 Mg Tablet, 50 MG PO 1800, (Reported) Entered as Reported by: NIKOLAY WISE on 07/23/221052 Last Action: Reviewed [Throat &Gland Suprt] , 2 SPRAY PO BID PRN for COLD SYMPTOMS, (Reported) Entered as Reported by: NIKOLAY WISE on 07/23/221052 Last Action: Reviewed Discontinued Medications Amlodipine Besylate (Amlodipine Besylate) 10 Mg Tablet, 10 MG PO ONCE Discontinued Reason: No Longer Taking Prescribed by: SALLIE GUTIÉRREZ on 06/25/22 1526 Last Action: Discontinued Aspirin (Aspirin EC) 81 Mg Tablet., 81 MG PO DAILY Discontinued Reason: No Longer Taking Prescribed by: SALLIE GUTIÉRREZ on 06/25/221525 Last Action: Discontinued Atorvastatin Calcium (Atorvastatin Calcium) 80 Mg Tablet, 80 MG PO DAILY Discontinued Reason: No Longer Taking Prescribed by: SALLIE GUTIÉRREZ on 06/25/221525 Last Action: Discontinued Losartan Potassium (Cozaar) 50 Mg Tablet, 50 MG PO DAILY, (Reported) Discontinued Reason: No Longer Taking Entered as Reported by: JASPREET SHRESTHA on 07/22/222014 Last Action: Discontinued [Lumigan2.5 M2] 2.5 ML DROPS, ML, (Reported) Discontinued Reason: No Longer Taking Entered as Reported by: TONE GAO on 02/04/15 0738 Last Action: Discontinued Past Jqjfwqd-Eperlv-Pjbzic Hx Patient Social History Marrital Status: single Employed/Student: retired Smoking Status: Never a Smoker Cardiovascular High Cholesterol, Hypertension Neurological TIA Review of Systems Constitutional: see HPI Physical Exam General Appearance: No Apparent Distress, WD/WN Short Stay Diagnosis Discharge Diagnosis-Short Stay Admission Diagnosis: Near syncope h/o TIA Chest pain ELevated troponin Final Discharge Diagnosis: Near syncope h/o TIA Chest pain ELevated troponin Conclusion Conclusion/Plan Cardiology consult Supervisory-Addendum Brief Verification & Attestation Participated in pt care: history, MDM, physical Personally performed: exam, history, MDM, supervision of care Care discussed with: Medical Student Procedures: n/a Results interpretation: Verified all documentation Verification and Attestation of Medical Student E/M Service A medical student performed and documented this service in my presence. I reviewed and verified all information documented by the medical student and made modifications to such information, when appropriate. I personally performed the physical exam and medical decision making. Brina Belle Jul 24, 2022,05:13 KATHERINE CORADO Jul 23, 2022 11:24 BRINA BELLE DO Jul 24, 2022 05:13
[2022-07-23] MEDS ORDERED: REGADENOSON 0.4 MG/5 ML SYR (LEXISCAN) IV ONE (11:45)
[2022-07-23] MEDS ORDERED: CATHETER FLUSH 10 ML SYR IVP PRN (12:00)
--- NOTE | 2022-07-23 15:12 | Cardiology Stress Test Report ---
Stress Test Report Date of Procedure/Referring: Date of Procedure: Jul 23, 2022 PCP Mikie Alejandro MD Admitting Physician Admitting Physician: Brina Silveira DO Attending Physician: Brina Silveira DO Indications: CP Baseline Heart Rate: 91 Baseline Blood Pressure: Blood Pressure Systolic: 110 Blood Pressure Diastolic: 69 Baseline Vitals Vital Signs Date Time Temp Pulse Resp B/P (MAP) Pulse Ox O2 Delivery O2 Flow Rate FiO2 07/22/22 16:58 36.9 82 20 125/62 (83) 96 Room Air 07/22/22 20:23 21 Baseline EKG: Baseline EKG: NSR Summary After explaining the procedure to the patient, she signed a consent and then brought to the stress nuclear laboratory. Patient received 0.4 mg Lexiscan for stress test, ECG, heart rate and blood pressure were monitored continuously. Resting and stress dose of radio tracer were injected, imaging was acquired and reviewed in short axis, horizontal long axis and vertical long axis views. TID: 1.14 SSS: 0 SDS: 0 EF: 75 1. Patient tolerated Lexiscan well 2. No significant ischemia or infarction noted on SPECT images 3. Normal left ventricular size, ejection fraction 75% Copy Copies To 1: MIKIE ALEJANDRO MD, BASHAR J MD Jul 23, 2022 15:12
[2022-07-23] MEDS ORDERED: LOSARTAN 50 MG (COZAAR) TAB PO SCH (18:00)
[2022-07-24 04:30] VITALS: BP 117/64
[2022-07-24 05:41] LABS: BASOPHILS % (AUTO) 1 % (0-10); EOSINOPHILS # (AUTO) 0.2 10^3/uL (0.0-0.3); EOSINOPHILS % (AUTO) 3 % (0-10); HEMATOCRIT 42 % (35-52); HEMOGLOBIN 13.9 g/dL (11.5-16.0); LYMPHOCYTES # (AUTO) 1.2 10^3/uL (1.0-4.0); LYMPHOCYTES % (AUTO) 20 % (12-44); MEAN CORPUSCULAR HEMOGLOBIN 30 pg (25-34); MEAN CORPUSCULAR HGB CONC 34 g/dL (32-36); MEAN CORPUSCULAR VOLUME 90 fL (80-99); MEAN PLATELET VOLUME 9.8 fL (9.0-12.2); MONOCYTES # (AUTO) 0.4 10^3/uL (0.0-1.0); MONOCYTES % (AUTO) 7 % (0-12); NEUTROPHILS # (AUTO) 4.2 10^3/uL (1.8-7.8); NEUTROPHILS % (AUTO) 69 % (42-75); PLATELET COUNT 272 10^3/uL (130-400); WHITE BLOOD COUNT 6.1 10^3/uL (4.3-11.0)
[2022-07-24 05:57] LABS: ALBUMIN 4.1 GM/DL (3.2-4.5); POTASSIUM 3.9 MMOL/L (3.6-5.0)
[2022-07-24 05:58] LABS: CALCIUM 9.7 MG/DL (8.5-10.1)
[2022-07-24 06:00] LABS: TOTAL PROTEIN 7.9 GM/DL (6.4-8.2)
[2022-07-24 06:01] LABS: BILIRUBIN,TOTAL 0.7 MG/DL (0.1-1.0)
[2022-07-24 06:03] LABS: CREATININE SERUM 0.75 MG/DL (0.60-1.30)
[2022-07-24 08:10] VITALS: BP 108/54
[2022-07-24] MEDS: DOCUSATE SODIUM 100 MG (COLACE) CAP PO SCH (08:31)
[2022-07-24] MEDS: SENNOSIDES 8.6 MG (SENOKOT) TAB PO SCH (08:31)
[2022-07-24] MEDS: ASPIRIN E.C. 81 MG (ECOTRIN) TAB PO SCH (08:31)
--- NOTE | 2022-07-24 08:38 | Cardiology Progress Note ---
Subjective Date Seen by Provider: Jul 24, 2022 Time Seen by Provider: 08:15 Subjective/Events-last exam Patient sitting up at bedside. Denies any chest pain or dyspnea Objective-Cardiology Exam Last Set of Vital Signs Vital Signs 07/22/22 07/24/22 20:23 11:40 Temp 36.6 Pulse 75 Resp 18 B/P (MAP) 107/53 (71) Pulse Ox 93 O2 Delivery Room Air FiO2 21 I&O Intake and Output 07/24/22 00:00 Intake Total 150 ml Balance 150 ml Intake Oral 150 ml # Voids 6 General: Alert, Oriented X3, Cooperative HEENT: Atraumatic, PERRLA Neck: Supple, No JVD, No Thyromegaly Lungs: Clear to Auscultation, Normal Air Movement Heart: Regular Rate, Normal S1, Normal S2, No Murmurs Abdomen: Normal Bowel Sounds, Soft, No Tenderness, No Hepatosplenomegaly, No Masses Extremities: No Clubbing, No Cyanosis, No Edema Skin: No Rashes, No Significant Lesion Neuro: Normal Speech, Cranial Nerves 3-12 NL Psych/Mental Status: Mental Status NL, Mood NL Results Lab Laboratory Tests 07/24/22 05:29 A/P-Cardiology Admission Diagnosis Chest pain Elevated troponin HTN Hx CVA URI Assessment/Plan Chest pain, nonspecific etiology, resolved. Reports brief episode of chest pain prior to admission when she was up walking to bathroom with associated dizziness. Denies any further episode. EKG showing SR with no acute ST changes. Lexiscan stress test was done on July 23, 2022 with no ischemia or infarction noted on SPECT images. Normal ejection fraction. Patient was reassured. Conservative management is recommended Upper respiratory tract infection, cough with runny nose, sore throat, managed by primary care team. 2D Echo done 06/25/22 showed mild concentric hypertrophy, EF 55-60%. Grade 1 diastolic dysfunction. Mild aortic valve sclerosis with mild AR. Minimal elevation in troponin, stress test negative for inschemia or infarct. HTN, restart home blood pressure medications and continue to monitor. Recent CVA, was hospitalized in June 2022 for CVA. 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 Maintained on ASA. 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 Supervisory-Addendum Brief Supervisory Addendum Participated in pt care: history, MDM, physical Personally performed: exam, history, MDM Care discussed with: HALEY Results interpretation: Verified all documentation Notes: Patient was seen and evaluated with Ino, examination performed, management plan was discussed, agree with the current scribed note, I made few changes to the note using Italic font Patient was seen and evaluated, has been doing well. Okay for discharge and follow-up as an outpatient INO JONES Jul 24, 2022 08:38 JONE COREY MD Jul 24, 2022 12:25
[2022-07-24] MEDS ORDERED: BENZ100C18 PO (11:08)
--- NOTE | 2022-07-24 11:09 | Discharge Summary ---
Diagnosis/Chief Complaint Date of Admission Jul 22, 2022 at 19:12 Date of Discharge Discharge Date: Jul 24, 2022 Discharge Diagnosis Near syncope h/o TIA Chest pain ELevated troponin Final Discharge Diagnosis: Near syncope h/o TIA Chest pain Elevated troponin Reason Hospital Visit CC: Near syncope with chest pain and elevated troponin Discharge Summary Discharge Physical Examination Allergies: Coded Allergies: No Known Drug Allergies (Unverified , 02/04/15) Vitals & I&Os Vital Signs Date Time Temp Pulse Resp B/P (MAP) Pulse Ox O2 Delivery O2 Flow Rate FiO2 07/24/22 13:07 07/24/22 11:40 36.6 75 18 93 Room Air 07/22/22 20:23 21 General Appearance: Alert, Oriented X3, Cooperative Respiratory: Clear to Auscultation Cardiovascular: Regular Rate Psych/Mental Status: Mental Status NL Hospital Course Was the Problem List Reviewed?: Yes Sandra Bashir is an 81 yo F with past medical history of HTN and HLD who presented to the ER on 07/22 after experiencing weakness, near syncope, cough, and a "warm" chest sensation. In the ER she was found to have an elevated troponin at .089. She had an EKG with normal sinus rhythm. She was admitted thereafter. Hospital Course: HPI in ER "81-year-old female presents with cold symptoms since last Thursday. Reports her main complaint is her cough, states she is unable to sleep at night due to the coughing. States the symptoms started with a runny nose and tearing of her eyes as well as a sore throat. She states her sore throat is better after doing salt water gargles and using an analgesic spray for her throat. She also reports she was unable to eat due to weakness, states she was walking to the bathroom and fell like she was going to faint. She also reported a "warm pressure" in her chest. She states she is concerned for bronchitis or pneumonia. Denies fever/chills, headache, chest pain, shortness of air, abdominal pain, nausea/vomiting, diarrhea. Past medical history includes TIA, she takes atorvastatin, losartan, and aspirin. States she also started taking zinc and using the throat spray since she started to feel unwell." The following labs were drawn in the ER Laboratory Tests Test 07/22/22 16:49 07/22/22 17:30 07/23/22 05:18 2/2/23 05:29 Range/Units Influenza Type A (RT-PCR) Not Detected Not Detecte Influenza Type B (RT-PCR) Not Detected Not Detecte SARS-CoV-2 RNA (RT-PCR) Not Detected Not Detecte White Blood Count 6.1 5.6 6.1 4.3-11.0 10^3/uL Red Blood Count 4.21 3.94 4.62 3.80-5.11 10^6/uL Hemoglobin 12.7 11.9 13.9 11.5-16.0 g/dL Hematocrit 39 36 42 35-52 % Mean Corpuscular Volume 92 90 90 80-99 fL Mean Corpuscular Hemoglobin 30 30 30 25-34 pg Mean Corpuscular Hemoglobin Concent 33 34 34 32-36 g/dL Red Cell Distribution Width 13.2 13.0 13.1 10.0-14.5 % Platelet Count 242 224 272 130-400 10^3/uL Mean Platelet Volume 10.0 10.2 9.8 9.0-12.2 fL Immature Granulocyte % (Auto) 0 0 0 % Neutrophils (%) (Auto) 73 72 69 42-75 % Lymphocytes (%) (Auto) 17 16 20 12-44 % Monocytes (%) (Auto) 6 6 7 0-12 % Eosinophils (%) (Auto) 4 4 3 0-10 % Basophils (%) (Auto) 1 0 1 0-10 % Neutrophils # (Auto) 4.4 4.1 4.2 1.8-7.8 10^3/uL Lymphocytes # (Auto) 1.0 0.9 L 1.2 1.0-4.0 10^3/uL Monocytes # (Auto) 0.4 0.4 0.4 0.0-1.0 10^3/uL Eosinophils # (Auto) 0.2 0.2 0.2 0.0-0.3 10^3/uL Basophils # (Auto) 0.0 0.0 0.0 0.0-0.1 10^3/uL Immature Granulocyte # (Auto) 0.0 0.0 0.0 0.0-0.1 10^3/uL Sodium Level 138 139 137 135-145 MMOL/L Potassium Level 3.8 3.7 3.9 3.6-5.0 MMOL/L Chloride Level 102 106 102 98-107 MMOL/L Carbon Dioxide Level 24 23 23 21-32 MMOL/L Anion Gap 12 10 12 5-14 MMOL/L Blood Urea Nitrogen 19 H 9 12 7-18 MG/DL Creatinine 0.72 0.62 0.75 0.60-1.30 MG/DL Estimat Glomerular Filtration Rate 83 88 79 BUN/Creatinine Ratio 26 15 16 Glucose Level 113 H 88 90 70-105 MG/DL Calcium Level 9.7 8.8 9.7 8.5-10.1 MG/DL Corrected Calcium 9.6 9.1 9.6 8.5-10.1 MG/DL Magnesium Level 2.2 1.6-2.4 MG/DL Total Bilirubin 0.4 0.4 0.7 0.1-1.0 MG/DL Aspartate Amino Transf (AST/SGOT) 19 17 19 5-34 U/L Alanine Aminotransferase (ALT/SGPT) 20 18 20 0-55 U/L Alkaline Phosphatase 113 92 97 40-136 U/L Troponin I 0.089 H 0.049 H <0.028 NG/ML Total Protein 7.7 6.7 7.9 6.4-8.2 GM/DL Albumin 4.1 3.6 4.1 3.2-4.5 GM/DL Triglycerides Level 53 <150 MG/DL Cholesterol Level 104 < 200 MG/DL LDL Cholesterol Direct 51 1-129 MG/DL VLDL Cholesterol 11 5-40 MG/DL HDL Cholesterol 36 L 40-60 MG/DL She was admitted to Dr. Belle on the evening of 07/22. Repeat troponins were .049. Cardiology was consulted. I saw this patient on 07/23 with following HPI "Mrs. Bashir is a pleasant 81 y/o female with a past medical history of TIA on Jun 25, HTN, HLD who presented to the ER yesterday with complaint of lightheadedness and fatigue. She also reported a "warm" nonradiating sensation in her chest before arrival to the ER, this sensation was new and had not happened before. She denied any sweating or shortness of breath. She had been feeling sick with a cough, runny nose, and sore throat since last Saturday 07/15. In the ER she was found to have an elevated troponin with an EKG showing sinus rhythm. A chest xray showed no acute abnormalities. She is medication averse due to feelings that her first was overmedicated, but reports she has taken her medication at home as prescribed. She reports feeling much better today. She denies any chest pain or shortness of breath and is able to ambulate and use the restroom without complication. Her fatigue is improved and only complains of some mild neck pain due to an uncomfortable pillow overnight." On exam of this patient on 07/24 she was feeling well with no complaints and ready to be discharged. Requested something for her throat pain and cough. She was able to ambulate and has been continent of stool and urine with no issues. Denies any chest pain, pressure, dizziness, headache, or vision changes. Physical exam revealed Lungs CTAB bilaterally, and normal cadiac exam with RRR and no murmurs present. Cardiology also consulted this patient on 07/23 and proceeded with a stress test showing Indications: CP Baseline Heart Rate: 91 Baseline Blood Pressure: Blood Pressure Systolic: 110 Blood Pressure Diastolic: 69 Baseline Vitals Vital Signs Date Time Temp Pulse Resp B/P (MAP) Pulse Ox O2 Delivery O2 Flow Rate FiO2 07/22/22 16:58 36.9 82 20 125/62 (83) 96 Room Air 07/22/22 20:23 21 Baseline EKG: Baseline EKG: NSR Summary After explaining the procedure to the patient, she signed a consent and then brought to the stress nuclear laboratory. Patient received 0.4 mg Lexiscan for stress test, ECG, heart rate and blood pressure were monitored continuously. Resting and stress dose of radio tracer were injected, imaging was acquired and reviewed in short axis, horizontal long axis and vertical long axis views. TID: 1.14 SSS: 0 SDS: 0 EF: 75 1. Patient tolerated Lexiscan well 2. No significant ischemia or infarction noted on SPECT images 3. Normal left ventricular size, ejection fraction 75% On 07/24 cardiology cleared Mrs. Bashir for discharge from a cardiac standpoint. An ischemic cause of her elevated troponins has been ruled out at this time. She was cleared for discharge with a rx for tessalon perles due to continuation of her cough and throat soreness. Assessment and Plan Near syncope Elevated troponin Hx of TIA URI HTN HLD Ischemic cause of her chest pain and elevated troponins have been ruled out. She was instructed to follow up with her PCP Dr. Cheney in the coming week or two. KATHERINE CORADO Jul 24, 2022 11:54 <Created by KATHERINE CORADO > Labs (last 24 hrs) Laboratory Tests 07/22/22 16:49: Influenza Type A (RT-PCR) Not Detected, Influenza Type B (RT-PCR) Not Detected, SARS-CoV-2 RNA (RT-PCR) Not Detected 07/22/22 17:30: White Blood Count 6.1, Red Blood Count 4.21, Hemoglobin 12.7, Hematocrit 39, Mean Corpuscular Volume 92, Mean Corpuscular Hemoglobin 30, Mean Corpuscular Hemoglobin Concent 33, Red Cell Distribution Width 13.2, Platelet Count 242, Mean Platelet Volume 10.0, Immature Granulocyte % (Auto) 0, Neutrophils (%) (Auto) 73, Lymphocytes (%) (Auto) 17, Monocytes (%) (Auto) 6, Eosinophils (%) (Auto) 4, Basophils (%) (Auto) 1, Neutrophils # (Auto) 4.4, Lymphocytes # (Auto) 1.0, Monocytes # (Auto) 0.4, Eosinophils # (Auto) 0.2, Basophils # (Auto) 0.0, Immature Granulocyte # (Auto) 0.0, Sodium Level 138, Potassium Level 3.8, Chloride Level 102, Carbon Dioxide Level 24, Anion Gap 12, Blood Urea Nitrogen 19H, Creatinine 0.72, Estimat Glomerular Filtration Rate 83, BUN/Creatinine Ratio 26, Glucose Level 113H, Calcium Level 9.7, Corrected Calcium 9.6, Magnesium Level 2.2, Total Bilirubin 0.4, Aspartate Amino Transf (AST/SGOT) 19, Alanine Aminotransferase (ALT/SGPT) 20, Alkaline Phosphatase 113, Troponin I 0.089H, Total Protein 7.7, Albumin 4.1 07/23/22 05:18: White Blood Count 5.6, Red Blood Count 3.94, Hemoglobin 11.9, Hematocrit 36, Mean Corpuscular Volume 90, Mean Corpuscular Hemoglobin 30, Mean Corpuscular Hemoglobin Concent 34, Red Cell Distribution Width 13.0, Platelet Count 224, Mean Platelet Volume 10.2, Immature Granulocyte % (Auto) 0, Neutrophils (%) (Auto) 72, Lymphocytes (%) (Auto) 16, Monocytes (%) (Auto) 6, Eosinophils (%) (Auto) 4, Basophils (%) (Auto) 0, Neutrophils # (Auto) 4.1, Lymphocytes # (Auto) 0.9L, Monocytes # (Auto) 0.4, Eosinophils # (Auto) 0.2, Basophils # (Auto) 0.0, Immature Granulocyte # (Auto) 0.0, Sodium Level 139, Potassium Level 3.7, Chloride Level 106, Carbon Dioxide Level 23, Anion Gap 10, Blood Urea Nitrogen 9, Creatinine 0.62, Estimat Glomerular Filtration Rate 88, BUN/Creatinine Ratio 15, Glucose Level 88, Calcium Level 8.8, Corrected Calcium 9.1, Total Bilirubin 0.4, Aspartate Amino Transf (AST/SGOT) 17, Alanine Aminotransferase (ALT/SGPT) 18, Alkaline Phosphatase 92, Troponin I 0.049H, Total Protein 6.7, Albumin 3.6, Triglycerides Level 53, Cholesterol Level 104, LDL Cholesterol Direct 51, VLDL Cholesterol 11, HDL Cholesterol 36L 07/24/22 05:29: White Blood Count 6.1, Red Blood Count 4.62, Hemoglobin 13.9, Hematocrit 42, Mean Corpuscular Volume 90, Mean Corpuscular Hemoglobin 30, Mean Corpuscular Hemoglobin Concent 34, Red Cell Distribution Width 13.1, Platelet Count 272, Mean Platelet Volume 9.8, Immature Granulocyte % (Auto) 0, Neutrophils (%) (Auto) 69, Lymphocytes (%) (Auto) 20, Monocytes (%) (Auto) 7, Eosinophils (%) (Auto) 3, Basophils (%) (Auto) 1, Neutrophils # (Auto) 4.2, Lymphocytes # (Auto) 1.2, Monocytes # (Auto) 0.4, Eosinophils # (Auto) 0.2, Basophils # (Auto) 0.0, Immature Granulocyte # (Auto) 0.0, Sodium Level 137, Potassium Level 3.9, Chloride Level 102, Carbon Dioxide Level 23, Anion Gap 12, Blood Urea Nitrogen 12, Creatinine 0.75, Estimat Glomerular Filtration Rate 79, BUN/Creatinine Ratio 16, Glucose Level 90, Calcium Level 9.7, Corrected Calcium 9.6, Total Bilirubin 0.7, Aspartate Amino Transf (AST/SGOT) 19, Alanine Aminotransferase (ALT/SGPT) 20, Alkaline Phosphatase 97, Total Protein 7.9, Albumin 4.1 Pending Labs Laboratory Tests 07/22/22 16:49: Influenza Type A (RT-PCR) Not Detected, Influenza Type B (RT-PCR) Not Detected, SARS-CoV-2 RNA (RT-PCR) Not Detected 07/22/22 17:30: White Blood Count 6.1, Red Blood Count 4.21, Hemoglobin 12.7, Hematocrit 39, Mean Corpuscular Volume 92, Mean Corpuscular Hemoglobin 30, Mean Corpuscular Hemoglobin Concent 33, Red Cell Distribution Width 13.2, Platelet Count 242, Mean Platelet Volume 10.0, Immature Granulocyte % (Auto) 0, Neutrophils (%) (Auto) 73, Lymphocytes (%) (Auto) 17, Monocytes (%) (Auto) 6, Eosinophils (%) (Auto) 4, Basophils (%) (Auto) 1, Neutrophils # (Auto) 4.4, Lymphocytes # (Auto) 1.0, Monocytes # (Auto) 0.4, Eosinophils # (Auto) 0.2, Basophils # (Auto) 0.0, Immature Granulocyte # (Auto) 0.0, Sodium Level 138, Potassium Level 3.8, Ch loride Level 102, Carbon Dioxide Level 24, Anion Gap 12, Blood Urea Nitrogen 19, Creatinine 0.72, Estimat Glomerular Filtration Rate 83, BUN/Creatinine Ratio 26, Glucose Level 113, Calcium Level 9.7, Corrected Calcium 9.6, Magnesium Level 2.2, Total Bilirubin 0.4, Aspartate Amino Transf (AST/SGOT) 19, Alanine Aminotransferase (ALT/SGPT) 20, Alkaline Phosphatase 113, Troponin I 0.089, Total Protein 7.7, Albumin 4.1 07/23/22 05:18: White Blood Count 5.6, Red Blood Count 3.94, Hemoglobin 11.9, Hematocrit 36, Mean Corpuscular Volume 90, Mean Corpuscular Hemoglobin 30, Mean Corpuscular Hemoglobin Concent 34, Red Cell Distribution Width 13.0, Platelet Count 224, Mean Platelet Volume 10.2, Immature Granulocyte % (Auto) 0, Neutrophils (%) (Auto) 72, Lymphocytes (%) (Auto) 16, Monocytes (%) (Auto) 6, Eosinophils (%) (Auto) 4, Basophils (%) (Auto) 0, Neutrophils # (Auto) 4.1, Lymphocytes # (Auto) 0.9, Monocytes # (Auto) 0.4, Eosinophils # (Auto) 0.2, Basophils # (Auto) 0.0, Immature Granulocyte # (Auto) 0.0, Sodium Level 139, Potassium Level 3.7, Chloride Level 106, Carbon Dioxide Level 23, Anion Gap 10, Blood Urea Nitrogen 9, Creatinine 0.62, Estimat Glomerular Filtration Rate 88, BUN/Creatinine Ratio 15, Glucose Level 88, Calcium Level 8.8, Corrected Calcium 9.1, Total Bilirubin 0.4, Aspartate Amino Transf (AST/SGOT) 17, Alanine Aminotransferase (ALT/SGPT) 18, Alkaline Phosphatase 92, Troponin I 0.049, Total Protein 6.7, Albumin 3.6, Triglycerides Level 53, Cholesterol Level 104, LDL Cholesterol Direct 51, VLDL Cholesterol 11, HDL Cholesterol 36 07/24/22 05:29: White Blood Count 6.1, Red Blood Count 4.62, Hemoglobin 13.9, Hematocrit 42, Mean Corpuscular Volume 90, Mean Corpuscular Hemoglobin 30, Mean Corpuscular Hemoglobin Concent 34, Red Cell Distribution Width 13.1, Platelet Count 272, Mean Platelet Volume 9.8, Immature Granulocyte % (Auto) 0, Neutrophils (%) (Auto) 69, Lymphocytes (%) (Auto) 20, Monocytes (%) (Auto) 7, Eosinophils (%) (Auto) 3, Basophils (%) (Auto) 1, Neutrophils # (Auto) 4.2, Lymphocytes # (Auto) 1.2, Monocytes # (Auto) 0.4, Eosinophils # (Auto) 0.2, Basophils # (Auto) 0.0, Immature Granulocyte # (Auto) 0.0, Sodium Level 137, Potassium Level 3.9, Chloride Level 102, Carbon Dioxide Level 23, Anion Gap 12, Blood Urea Nitrogen 12, Creatinine 0.75, Estimat Glomerular Filtration Rate 79, BUN/Creatinine Ratio 16, Glucose Level 90, Calcium Level 9.7, Corrected Calcium 9.6, Total Bilirubin 0.7, Aspartate Amino Transf (AST/SGOT) 19, Alanine Aminotransferase (ALT/SGPT) 20, Alkaline Phosphatase 97, Total Protein 7.9, Albumin 4.1 Discharge Home Medications: Active Scripts Active Tessalon Perles (Benzonatate) 100 Mg Capsule 200 Mg PO Q6H Reported [Throat &Gland Suprt] 2 [place] PO BID PRN Zinc-Vitamin C 50-90 mg Sfgl (Ascorbic Acid/Zinc Oxide) 90 Mg-50 Mg Capsule 1 Each PO DAILY PRN Aspirin EC (Aspirin) 81 Mg Tablet.dr 81 Mg PO DAILY Atorvastatin Calcium 80 Mg Tablet 80 Mg PO 1800 Losartan Potassium 50 Mg Tablet 50 Mg PO 1800 Instructions to patient/family Please see electronic discharge instructions given to patient. JOSE M BELLE DO Jul 24, 2022 11:09
[2022-07-24 11:40] VITALS: BP 107/53
--- NOTE | 2022-07-24 11:54 | Progress Note ---
KATHERINE CORADO 07/24/22 1154: Progress Note Sandrajann Bashir is an 81 yo F with past medical history of HTN and HLD who presented to the ER on 07/22 after experiencing weakness, near syncope, cough, and a "warm" chest sensation. In the ER she was found to have an elevated troponin at .089. She had an EKG with normal sinus rhythm. She was admitted thereafter. Hospital Course: HPI in ER "81-year-old female presents with cold symptoms since last Thursday. Reports her main complaint is her cough, states she is unable to sleep at night due to the coughing. States the symptoms started with a runny nose and tearing of her eyes as well as a sore throat. She states her sore throat is better after doing salt water gargles and using an analgesic spray for her throat. She also reports she was unable to eat due to weakness, states she was walking to the bathroom and fell like she was going to faint. She also reported a "warm pressure" in her chest. She states she is concerned for bronchitis or pneumonia. Denies fever/chills, headache, chest pain, shortness of air, abdominal pain, nausea/vomiting, diarrhea. Past medical history includes TIA, she takes atorvastatin, losartan, and aspirin. States she also started taking zinc and using the throat spray since she started to feel unwell." The following labs were drawn in the ER Laboratory Tests Test 07/22/22 16:49 07/22/22 17:30 07/23/22 05:18 07/24/22 05:29 Range/Units Influenza Type A (RT-PCR) Not Detected Not Detecte Influenza Type B (RT-PCR) Not Detected Not Detecte SARS-CoV-2 RNA (RT-PCR) Not Detected Not Detecte White Blood Count 6.1 5.6 6.1 4.3-11.0 10^3/uL Red Blood Count 4.21 3.94 4.62 3.80-5.11 10^6/uL Hemoglobin 12.7 11.9 13.9 11.5-16.0 g/dL Hematocrit 39 36 42 35-52 % Mean Corpuscular Volume 92 90 90 80-99 fL Mean Corpuscular Hemoglobin 30 30 30 25-34 pg Mean Corpuscular Hemoglobin Concent 33 34 34 32-36 g/dL Red Cell Distribution Width 13.2 13.0 13.1 10.0-14.5 % Platelet Count 242 224 272 130-400 10^3/uL Mean Platelet Volume 10.0 10.2 9.8 9.0-12.2 fL Immature Granulocyte % (Auto) 0 0 0 % Neutrophils (%) (Auto) 73 72 69 42-75 % Lymphocytes (%) (Auto) 17 16 20 12-44 % Monocytes (%) (Auto) 6 6 7 0-12 % Eosinophils (%) (Auto) 4 4 3 0-10 % Basophils (%) (Auto) 1 0 1 0-10 % Neutrophils # (Auto) 4.4 4.1 4.2 1.8-7.8 10^3/uL Lymphocytes # (Auto) 1.0 0.9 L 1.2 1.0-4.0 10^3/uL Monocytes # (Auto) 0.4 0.4 0.4 0.0-1.0 10^3/uL Eosinophils # (Auto) 0.2 0.2 0.2 0.0-0.3 10^3/uL Basophils # (Auto) 0.0 0.0 0.0 0.0-0.1 10^3/uL Immature Granulocyte # (Auto) 0.0 0.0 0.0 0.0-0.1 10^3/uL Sodium Level 138 139 137 135-145 MMOL/L Potassium Level 3.8 3.7 3.9 3.6-5.0 MMOL/L Chloride Level 102 106 102 98-107 MMOL/L Carbon Dioxide Level 24 23 23 21-32 MMOL/L Anion Gap 12 10 12 5-14 MMOL/L Blood Urea Nitrogen 19 H 9 12 7-18 MG/DL Creatinine 0.72 0.62 0.75 0.60-1.30 MG/DL Estimat Glomerular Filtration Rate 83 88 79 BUN/Creatinine Ratio 26 15 16 Glucose Level 113 H 88 90 70-105 MG/DL Calcium Level 9.7 8.8 9.7 8.5-10.1 MG/DL Corrected Calcium 9.6 9.1 9.6 8.5-10.1 MG/DL Magnesium Level 2.2 1.6-2.4 MG/DL Total Bilirubin 0.4 0.4 0.7 0.1-1.0 MG/DL Aspartate Amino Transf (AST/SGOT) 19 17 19 5-34 U/L Alanine Aminotransferase (ALT/SGPT) 20 18 20 0-55 U/L Alkaline Phosphatase 113 92 97 40-136 U/L Troponin I 0.089 H 0.049 H <0.028 NG/ML Total Protein 7.7 6.7 7.9 6.4-8.2 GM/DL Albumin 4.1 3.6 4.1 3.2-4.5 GM/DL Triglycerides Level 53 <150 MG/DL Cholesterol Level 104 < 200 MG/DL LDL Cholesterol Direct 51 1-129 MG/DL VLDL Cholesterol 11 5-40 MG/DL HDL Cholesterol 36 L 40-60 MG/DL She was admitted to Dr. Belle on the evening of 07/22. Repeat troponins were .049. Cardiology was consulted. I saw this patient on 07/23 with following HPI "Mrs. Bashir is a pleasant 81 y/o female with a past medical history of TIA on Jun 25, HTN, HLD who presented to the ER yesterday with complaint of lightheadedness and fatigue. She also reported a "warm" nonradiating sensation in her chest before arrival to the ER, this sensation was new and had not happened before. She denied any sweating or shortness of breath. She had been feeling sick with a cough, runny nose, and sore throat since last Saturday 07/15. In the ER she was found to have an elevated troponin with an EKG showing sinus rhythm. A chest xray showed no acute abnormalities. She is medication averse due to feelings that her first was overmedicated, but reports she has taken her medication at home as prescribed. She reports feeling much better today. She denies any chest pain or shortness of breath and is able to ambulate and use the restroom without complication. Her fatigue is improved and only complains of some mild neck pain due to an uncomfortable pillow overnight." On exam of this patient on 07/24 she was feeling well with no complaints and ready to be discharged. Requested something for her throat pain and cough. She was able to ambulate and has been continent of stool and urine with no issues. Denies any chest pain, pressure, dizziness, headache, or vision changes. Physical exam revealed Lungs CTAB bilaterally, and normal cadiac exam with RRR and no murmurs present. Cardiology also consulted this patient on 07/23 and proceeded with a stress test showing Indications: CP Baseline Heart Rate: 91 Baseline Blood Pressure: Blood Pressure Systolic: 110 Blood Pressure Diastolic: 69 Baseline Vitals Vital Signs Date Time Temp Pulse Resp B/P (MAP) Pulse Ox O2 Delivery O2 Flow Rate FiO2 07/22/22 16:58 36.9 82 20 125/62 (83) 96 Room Air 07/22/22 20:23 21 Baseline EKG: Baseline EKG: NSR Summary After explaining the procedure to the patient, she signed a consent and then brought to the stress nuclear laboratory. Patient received 0.4 mg Lexiscan for stress test, ECG, heart rate and blood pressure were monitored continuously. Resting and stress dose of radio tracer were injected, imaging was acquired and reviewed in short axis, horizontal long axis and vertical long axis views. TID: 1.14 SSS: 0 SDS: 0 EF: 75 1. Patient tolerated Lexiscan well 2. No significant ischemia or infarction noted on SPECT images 3. Normal left ventricular size, ejection fraction 75% On 07/24 cardiology cleared Mrs. Bashir for discharge from a cardiac standpoint. An ischemic cause of her elevated troponins has been ruled out at this time. She was cleared for discharge with a rx for tessalon perles due to continuation of her cough and throat soreness. Assessment and Plan Near syncope Elevated troponin Hx of TIA URI HTN HLD Ischemic cause of her chest pain and elevated troponins have been ruled out. She was instructed to follow up with her PCP Dr. Cheney in the coming week or two. BRINA BELLE DO 07/25/22 0513: Supervisory-Addendum Brief Verification & Attestation Participated in pt care: history, MDM, physical Personally performed: exam, history, MDM, supervision of care Care discussed with: Medical Student Procedures: n/a Results interpretation: Verified all documentation Verification and Attestation of Medical Student E/M Service A medical student performed and documented this service in my presence. I reviewed and verified all information documented by the medical student and made modifications to such information, when appropriate. I personally performed the physical exam and medical decision making. Brina Belle Jul 25, 2022,05:13 KATHERINE CORADO Jul 24, 2022 11:54 BRINA BELLE DO Jul 25, 2022 05:13
== END 2022-07-24 13:10 | disposition home or self-care (01) ==
LOC: EDUNIT# 16:28 → ER 16:30 → 4TH 19:12
PROVIDERS: ADMIT Internal Medicine; ATTEND Internal Medicine
DX: R55 Syncope and collapse (principal); R07.9 Chest pain, unspecified; R77.8 Other specified abnormalities of plasma proteins; I10 Essential (primary) hypertension; N39.0 Urinary tract infection, site not specified; R94.39 Abnormal result of other cardiovascular function study; I35.8 Other nonrheumatic aortic valve disorders; Z86.73 Personal history of transient ischemic attack (TIA), and cerebral infarction without residual deficits
CPT/HCPCS: 71045; 78452; 80053 ×3; 80061; 83735; 84484 ×2; 85025 ×3; 87636; 93005 ×3; 93017; 93041; 99284; A9502; 36415; G0378

== ENCOUNTER → 2022-08-20 | Outpatient (CLI) | payer MEDICARE ==
[~2022-08-20] MED LIST changes: +ASCO1CAP PO; +BENZ100C18 PO; +LOSA50TA2 PO; +LOSA50TA63 PO; +THROAT PO; +[UNRECOGNIZED DRUG - OTHER] PO
== END ==
LOC: RT 10:01
PROVIDERS: ATTEND Internal Medicine
DX: R06.02 Shortness of breath (principal); R06.09 Other forms of dyspnea; U09.9 Post COVID-19 condition, unspecified

== ENCOUNTER → 2022-11-10 | Outpatient (CLI) | payer MEDICARE ==
--- NOTE | 2022-11-10 13:39 | Diagnostic Imaging Report ---
INDICATION: Abdominal pain TECHNIQUE: Multiple real-time larios scale sonographic images of the abdomen. CORRELATION STUDY: None FINDINGS: LIVER: Normal echotexture within the visualized portions of the liver. There is normal, hepatopedal direction of flow within the main portal vein. Liver length 13 cm. GALLBLADDER: Gallbladder appears very mildly prominent contains some echogenic foci, may reflect small amount of sludge and/or debris. No definitive shadowing gallstones. Gallbladder wall thickness, within normal limits at 0.2 cm. COMMON BILE DUCT: Nondilated at 0.4 cm. PANCREAS: Limited in visualization. The visualized portions appearing unremarkable. SPLEEN: Unremarkable at 7.4 x 2.7 x 3.8 cm. ABDOMINAL AORTA: Unremarkable. INFERIOR VENA CAVA: Limited in visualization. RIGHT KIDNEY: 8.7 x 4.5 x 5.3 cm. Unremarkable. LEFT KIDNEY: 9 x 4.6 x 4.7 cm. Unremarkable. OTHER: No significant ascites. Overall assessment is somewhat limited and compromised given limitations with the breathing variation and overlying bowel gas. IMPRESSION: 1. Question biliary sludge and/or debris. No definitive shadowing gallstones or bile duct dilatation. Dictated by: Dictated on workstation # [id number]
== END ==
LOC: RAD 08:15
PROVIDERS: ATTEND Internal Medicine
DX: R10.9 Unspecified abdominal pain (principal); R11.0 Nausea; R94.5 Abnormal results of liver function studies
CPT/HCPCS: 76700